=== PATIENT | female | born 1940 | race Caucasian/White ===

== ENCOUNTER 2025-02-17 12:44 | Inpatient (IN) | payer MEDICARE, SELFPAY ==
--- NOTE | 2025-02-04 10:58 | PM.GYNHP.1 ---
History of Present Illness History of Present Illness Narrative: Cristina Araujo is a 84 year old female Date of procedure:?? 02-17-2025 Preoperative diagnosis:? cystocele, vaginal vault prolapse, stage 3 urinary incontinence, mostly urge ,. some stress incontinence incomplete bladder emptying, with paris catheter Planned Procedure:?? total colpocleisis, excision of granulation tissue, cystoscopy, possible mid urethral sling Postop Meds Tylenol 1000 mg, ?3 times a day? Motrin 400 mg (over age 65 yr) ,? 3 times a day Oycodone 5 mg,? take 1 pill every 4-6 hr as needed, # 10? Colace,? 1 pill BID, for constipation CC: Recurrence severe prolapse, With incomplete bladder emptying and Paris catheter HPI: 84-year-old female who presents for evaluation of above complaint.?? She reports onset of symptoms over 2 years ago.?? She considers this a? Moderate? problem. She is here with her adult daughter, Denise Patient is referred from [facility] Dr. José Miguel Michel She has a complicated surgical history. Most recently she underwent a partial LeFort colpocleisis in [place] in 2022. This surgery failed within a few months. Since that time she is experiencing incomplete bladder emptying with post for his residuals ranging from 300-400 cc and recurring UTI. She is currently managed with a chronic Paris catheter and waiting for her prolapse to be treated. She desires repeat prolapse surgery. She previously has had a hysterectomy previously had some type of prolapse surgery 20 years ago. She has also had an abdominal wall hernia treated with mesh in the anterior abdominal wall. She has failed multiple pessaries. She currently has a large bulge the size of a tennis ball and associated symptoms of pressure and heaviness and incomplete bladder emptying. She had a cystoscopy done that demonstrated no concerning lesions. Chest bladder trabeculations consistent with clinical findings of incomplete bladder emptying She had a renal imaging study that demonstrated bilateral stones and mild hydronephrosis bilaterally. She is referred for surgical consultation for a possible total colpocleisis for a robotic laparoscopic sacral colpopexy. Prior to the surgery in 2022 the medical records indicate that she had both stress and urge urinary incontinence symptoms as well as urinary frequency about every 1-2 hours in using 5 pads per day. Presently she is unable to void well has a chronic Paris catheter. We discussed that she is at risk of developing stress incontinence following repair of the prolapse and that she might need this treated as well. prior hyst -yes Pelvic Floor Review of Systems: (HPI) Stress Urinary Incontinence symptoms (JAJA): Currently, no,, due to chronic Paris catheter, but did have these symptoms prior to the failed surgery in 2022 ? Urge Incontinence symptoms (Urge UI):?? Currently, no,, due to chronic Paris catheter, but did have these symptoms prior to the failed surgery in 2022 ? Pads: Presently 0, did use 5 pads per day prior to 2022 Overactive Bladder symptoms (OAB):? ? Frequency:?? Previously was 1-2 hours Nocturia:?? Previously was 5 Urgency:?? Previously was yes Prior incontinence treatment includes:? Medical:? Yes Surgical:? Unclear, possible prior surgery Kegels:?? Yes Physical therapy:?No? Pessary:?Has tried these for prolapse. Not for incontinence Diet / Fluids: Fluid restriction:? No Excessive fluids:?No Pain symptoms:? Painful bladder:???No Dysuria:??? No Dyspareunia:? No Dysmenorrhea:? No Urinary Risk Factors UTI?s, recurrent:? Yes Hematuria:? No Kidney Stones:?Recent imaging demonstrates small bilateral stones Tobacco use:? No Pelvic Organ Prolapse (POP) symptoms:?? Bulge:?Yes Pressure and /or? Heaviness:?Yes Splint for defecation or voiding:???No Voiding dysfunction: Abnormal stream:? No Strain to void: Yes Incomplete emptying: Yes Voiding difficulty:? No Retention:??? No Bowel Function: Constipation:?No Strain to defecate:?Now Fiber:?No Laxatives:?No Fecal Incontinence:? Liquid stool:? No Solid stool:?No?? Sexual function Sexually active:? No Incontinence with sex:? No ? 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 Pertinent positives listed above in HPI All others reviewed and negative. All reviewed on patient questionnaire.? . . PFSH Medical History Vaginal granulation tissue Incomplete bladder emptying Urethral hypermobility Vaginal vault prolapse Cystocele, midline Comment: Past medical history Asthma Hypertension Intracerebral hemorrhage Seizures stroke Diverticulosis large intestine For renal stones Scoliosis Osteoarthritis Past surgical history Hysterectomy 2 prior prolapse repairs rotator cuff repair, right paraesophageal hernia repair With mesh joint replacement Allergies Sulfa with hives Clindamycin with diarrhea Lisinopril with cough Metronidazole with nausea and vomiting Penicillin with hives Allergies metronidazole (From Flagyl) Allergy (Severe, Verified 01/01/25 10:34) Vomiting Penicillins Allergy (Severe, Verified 01/01/25 10:34) Rash clindamycin Allergy (Intermediate, Verified 01/01/25 10:34) Vomiting Sulfa (Sulfonamide Antibiotics) Allergy (Intermediate, Verified 01/01/25 10:34) Nausea lisinopril Adverse Reaction (Intermediate, Verified 01/01/25 10:34) cough Medications amitriptyline 25 mg tablet mg PO 01/01/25 [History Confirmed 01/01/25] estradiol 0.01% (0.1 mg/gram) vaginal cream vaginal 01/01/25 [History Confirmed 01/01/25] losartan 50 mg tablet 50 mg PO DAILY 01/01/25 [History Confirmed 01/01/25] metoprolol succinate 50 mg tablet,extended release 24 hr 50 mg PO DAILY 01/01/25 [History Confirmed 01/01/25] omeprazole 20 mg capsule,delayed release 20 mg PO DAILY 01/01/25 [History Confirmed 01/01/25] Medications Tylenol Amitriptyline Pepcid Losartan Metoprolol Estrogen vaginal cream Tobacco & Substance Use Smoking Status: Never smoker Exam Vitals 01/01/2510:39 Height 5 ft 2 in Weight 150 lb BMI 27.4 BP 150/89 H Blood Pressure Location Lt radial Position Sitting Pulse 72 Pulse Source Monitor Pulse Oximetry (%) 100 Oxygen Delivery Method room air General: healthy, alert, coherent, no acute distress, cooperative, nontoxic Pulmonary: normal breathing, no distress Abdomen: soft, no mass, non-distended, no hernia, non-tender Vulva: Normal labia majora, labia minora, introitus, and clitoris, non-tender Urethra meatus: normal, no discharge, chronic indwelling Paris catheter in place Perineum: Normal, non-tender Urethra: No mass, non-tender Bladder: no mass, non-tender Vagina: no discharge, + atrophy, non-tender there are areas of granulation tissue anteriorly and posteriorly, at the site of the prior failed LeFort partial colpocleisis the total amount of granulation tissue was about 6 sq cm on each side Stage III Prolapse -there is recurrence prolapse with cystocele and vault prolapse and upper rectocele Levators: Non-tender, Hysterectomy Bimanual: no mass, no adnexal mass, non-tender Anus: No lesion, non-tender, no hemorrhoid Empty Cough Stress test: Not performed PVR- + chronic indwelling Paris catheter, prior PVR was 325-400 cc Urethral hypermobility, yes. POP-Q Exam: Aa: 0 Ba: +4 Ap: -2 Bp: -2 C: +4 D: Not applicable, although the posterior wall goes to a depth of -4 TVL: 9 GH: 3.5 PB: 3.0 Introitus size: X2 fingerbreadths Cystocele stage: Stage III Rectocele stage: Stage I Uterine/Vault Prolapse Stage: stage III Assessment & Plan (1) Cystocele, midline: Status: Acute (2) Vaginal vault prolapse: Status: Acute (3) Urethral hypermobility: Status: Acute (4) Incomplete bladder emptying: Status: Acute (5) Vaginal granulation tissue: Assessment and Plan ? Patient counseled regarding above conditions.? Educational materials given to patient. 1. 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 Treatment options were discussed including: expectant management, pessary trial, and surgical intervention. We briefly discussed risks and benefits of surgery. All surgery for prolapse is not 100% successful and there is a chance of recurrence or failure. She declines a Pessary Trial for Prolapse Prior failed prolapse surgery with a partial LeFort colpocleisis she desires surgery my recommendation = total colpocleisis, excision of granulation tissue, cystoscopy, possible mid urethral sling We also discussed possible robotic laparoscopic sacral colpopexy. However this is a more complex surgery made even more difficult by her prior pelvic surgeries on her prior abdominal wall hernia repair with mesh in the abdominal wall. The total colpocleisis will be a chronic current safer surgery for her to undergo and the results should be the same see below for counseling 2. Urethral hypermobility She is at risk for postoperative stress incontinence from the prolapse repair. Studies show that in women with severe prolapse of the anterior vaginal wall, 25% will have significant stress incontinence, following prolapse repair surgery. So her risk of finding stress incontinence, as below, is 25%. Will plan to diagnose stress incontinence intra-operatively by filling the bladder with 200-300 cc of fluid, and then using a crede maneuver to see if there is leakage of fluid from the urethra. If there is leakage, then stress incontinence will be diagnosed, and she will be treated with a mid urethral sling. 3. Incomplete bladder emptying with postvoid residuals of 300-400 cc, with chronic Paris catheter in place Anticipate that after the prolapse surgery her bladder will have improved emptying, hopefully normal emptying, and ideally will no longer need chronic Paris catheter Follow-up: Preop Surgical Counselling Note Patient seen for surgical counselling.? She desires surgical repair. Please see? H & P for exam and discussion. Date of procedure:?? 02-17-2025 Preoperative diagnosis:? cystocele, vaginal vault prolapse, stage 3 urinary incontinence, mostly urge ,. some stress incontinence incomplete bladder emptying, with paris catheter Planned Procedure:?? total colpocleisis, excision of granulation tissue, cystoscopy, possible mid urethral sling Postop Meds Tylenol 1000 mg, ?3 times a day? Motrin 400 mg (over age 65 yr) ,? 3 times a day Oycodone 5 mg,? take 1 pill every 4-6 hr as needed, # 10? Colace,? 1 pill BID, for constipation Patient counseled extensively about the Risks, Benefits, and Alternatives to surgery.? She was offered the opportunity to ask any questions, and all questions were answered. ? Surgical Risks include: Bleeding, Hemorrhage, Transfusion, Infection (especially wound or bladder), Injury to adjacent organs (especially bladder, ureter, bowel, blood vessels, nerves), Postop or Chronic Pain, need for Reoperation, and Life-threatening event (especially M.I., CVA, PE, DVT). Procedure Risks include: Failure to Cure condition, Recurrence of condition months or years later, Urinary incontinence, Voiding dysfunction or Urinary Retention with prolonged catheter use, Poor wound healing, Erosions of any mesh or graft used, Dyspareunia, Vaginal scarring or narrowing, Need for additional surgery (immediate or delayed).? The expected cure and improvement and failure rates were discussed. Patient counseled to avoid the following for 6 weeks after surgery: (1) Impact sports (like running or jumping), walking and stairs OK (2) Lifting over 20# (3) Sexual intercourse No limits after 6 weeks. ? Good exercise tolerance, > 4 Mets. Her current medications were reviewed, and instructions given over which to use and which to discontinue before surgery.? Post-operative care instructions reviewed.? We discussed post-operative pain: Pain should be in the mild-moderate range, but can be moderate-severe for the first few days.?? Prescriptions will typically be given for (1) acetaminophen (Tylenol) and (2) non-steroidal anti-inflammatory drug (NSAID, like Motrin or Naprosyn), use both together, around the clock. Prescription will also be given for a (3) narcotic pain medication. Use the narcotic as needed, as a booster to the Tylenol and NSAID. You might need 0-4 narcotic pills a day typically. The narcotic will only be needed for a few days.?? Gradually use less of the narcotic, but continue the Tylenol and NSAID.? After a few days, the narcotic should no longer be needed, and only the Tylenol and NSAID will be needed.? Warm packs or cold packs can also be used for pain.??Do not drive for as long as you are using the narcotic pain medication? - this should only be a few days.?? Constipation is associated with use of narcotic pain medications, and can be improved with use of a stool softener, or fiber, or a mild laxative.? If you are sent home from the hospital with a Paris Catheter in place:? please call the office on the day after surgery We will usually remove the catheter 2-4 days after surgery: a. You will perform an at home Paris catheter removal -or- b. You will come in to the office for a voiding trial, (For some unusual surgeries, we might leave the catheter in for up to 2 weeks, and then remove it.) Instructions for at home Paris catheter removal..... For at-home Paris catheter removal, this can be done on postop day 2 or 3 or 4, depending on various factors. 1. At 6 or 7 a.m., have the patient cut the Paris catheter with scissors, while standing in a shower or bath tub. a. Cut the catheter right in the middle of the tubing, about 6 inches from the body. b. The sterile water that is inside the Paris balloon will leak all over the floor of the shower or bath tub. This is expected. c. The catheter will either fall out of the urethra, or just gently pull on it and it will come out. 2. Now, the bladder will gradually fill up over the next few hours. 3. Go ahead and empty the bladder when you feel an urge to void. Please note how strong the urine stream is. a. If the urine stream is normal or close to normal, then everything is good to go. b. If the urine stream is slow or you can not void, then return to the clinic in the afternoon. We will place another Paris catheter. We will repeat the voiding trial in 3-4 days. All of her questions were answered Aristeo García MD UroGynecology & Pelvic Reconstructive Surgery [facility] Medical History (Updated 01/01/25 @ 13:13 by Aristeo García MD) Vaginal granulation tissue Incomplete bladder emptying Urethral hypermobility Vaginal vault prolapse Cystocele, midline Meds Home Medications and Allergies Home Medications ?Medication ?Instructions ?Recorded ?Confirmed ?Type amitriptyline 25 mg tablet mg PO 01/01/25 01/01/25 History estradiol 0.01% (0.1 mg/gram) vaginal 01/01/25 01/01/25 History vaginal cream losartan 50 mg tablet 50 mg PO DAILY 01/01/25 01/01/25 History metoprolol succinate 50 mg 50 mg PO DAILY 01/01/25 01/01/25 History tablet,extended release 24 hr omeprazole 20 mg capsule,delayed 20 mg PO DAILY 01/01/25 01/01/25 History release oxycodone 5 mg tablet 5 mg PO Q8H PRN pain #10 tabs 02/04/25 02/04/25 Rx Allergies Allergy/AdvReac Type Severity Reaction Status Date / Time metronidazole (From Flagyl) Allergy Severe Vomiting Verified 01/01/25 10:34 Penicillins Allergy Severe Rash Verified 01/01/25 10:34 clindamycin Allergy Intermediate Vomiting Verified 01/01/25 10:34 Sulfa (Sulfonamide Allergy Intermediate Nausea Verified 01/01/25 10:34 Antibiotics) lisinopril AdvReac Intermediate cough Verified 01/01/25 10:34 Assessment & Plan Time-Based Coding :: [TOTAL MINUTES] spent with patient and on the chart (including review of chart, obtaining history, exam, reviewing outside data, placing orders, documenting exam and treatment plan, and counseling patient) on [DATE].
[2025-02-06 13:06] VITALS: BMI 27.4
[2025-02-17] VITALS (15 sets, daily range): BP systolic 120–163; BP diastolic 43–79; PULSE 73–81; RESP 14–26; TEMP 36.1–36.4; O2SAT 19–99; BMI 27.4
--- NOTE | 2025-02-17 | PATH_ITS ---
[facility] Accession Number: [id number] No. of containers..01 Tissue . 01 Material submitted: . vagina - VAGINAL TISSUE . 01 Diagnosis: VAGINAL TISSUE: Squamous mucosa with patchy parakeratosis; negative for dysplasia or malignancy. Polypoid fragments of inflamed granulation tissue; negative for atypia or malignancy. MRV 02/27/2025 1651 Local . 01 Comment: this case was also reviewed by Dr. Phani Emerson (Julie), who agrees with the interpretation. . 01 Electronically signed: . Marily Campbell MD, Pathologist NPI- [id number] . 01 Gross description: . Received in formalin labeled with two patient identifiers and vaginal tissue, and consists of a 11.0 x 6.5 x 0.5 cm aggregate of mcdaniel-whtie, smooth, glistening, focally cauterized soft tissues partially surfaced by a white, glistening, wrinkled, unremarkable mucosa. The cauterized margins are inked, and the specimen is serially sectioned to show a white, fibrotic, homogenous, unremarkable cut surface. Additionally received in the same container is a 3.0 x 2.0 x 0.4 cm aggregate of mcdaniel, purple, focally edematous, fibromembranous tissue which is sectioned to show an unremarkable cut surface. Tool Sharpener sections are submitted as follows: A1: Tool Sharpener sections of glistening, cauterized vaginal mucosa. A2: Tool Sharpener sections of mcdaniel-purple, edematous, fibromembranous tissue. ([id number]) /TRUDI 02/24/2025 2104 Local . 01 Pathologist provided ICD-10: N81.11, N81.9, N39.3 . 01 CPT . 113930 Specimen Comment: A courtesy copy of this report has been sent to [facility] Pathology Performed at: [address] [facility] [address] [facility], [place], [place] [id number] MD Dusty Pratt MD Phone: [phone]
--- NOTE | 2025-02-17 06:00 | EKG_ITS ---
[facility] [id number] [address] Test Date: 2025-02-17 Pat Name: Cristina Araujo Department: Room: 90B Gender: Female Admission Specialist: Pushpa QUICK : 1940 Requested By: Order Number: [id number] Reading MD: Kurtis Estevez MD Measurements Intervals [place] Rate: 74 P: 30 TX: 184 QRS: 1 QRSD: 94 T: 8 QT: 372 QTc: 412 Interpretive Statements Normal sinus rhythm Nonspecific ST abnormality Electronically Signed On 02-17-2025 16:18:25 PDT by Kurtis Estevez MD
[2025-02-17] MEDS: LACTATED RINGERS 1,000 ML 42 ML IV ×3 (13:34→22:00)
[2025-02-17] MEDS: ACETAMINOPHEN 325 MG TABLET 975 MG PO ×2 (13:34→22:45)
[2025-02-17] MEDS: GABAPENTIN 300 MG CAPSULE PO (13:35)
[2025-02-17] MEDS: PHENAZOPYRIDINE 100 MG TABLET 200 MG PO (13:48)
--- NOTE | 2025-02-17 14:43 | PM.PREOP ---
Pre-operative Note Interval Note History & Physical reviewed/Exam performed by Physician: Yes Changes to H&P: No
--- NOTE | 2025-02-17 15:30 | P.OP_ITS ---
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 Aristeo García MD Machine Packer:?? Bharati Real MD Pre-Op Diagnosis:?? 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 Stage III prolapse, primarily cystocele and vaginal vault, to + 4 cm 2. Extensive granulation tissue around the vagina, all of this was excised. It was all due to the prior failed LeFort colpocleisis 3. Entire vagina excised, except for distal 2 cm of Anterior vaginal mucosa, left to cover over the sling.?? Two purse string sutures 2-0 vicryl used to close the bladder to the rectum in usual fashion. Interrupted sutures 2-0 vicryl used to reapproximate the levator muscles and completely close the vagina. Gel- Foam placed for hemostasis. Only about 2 cm of vaginal depth noted at end of case (from introital and vulvar tissue). 4. Cystoscopy with normal bladder, urethra, ureters, no injury.? With 200 ml of fluid in the bladder, Crede demonstrated large leak of fluid, so JAJA diagnosed, sling indicated 5. Desara Retropubic TVT -type sling placed at mid-urethra, tension-free.??? Cystoscopy with normal bladder, urethra, ureters, no trocar injury. Date of Surgery:? 02-17-2025 Complications:? none Specimens:? Vaginal mucosa Anesthesia Technique: General endotracheal Estimated Blood Loss (mls):? 300 Blood Replacement (mls):? None Drains:? Gray Condition:? Stable Procedure in detail: After consent was confirmed, the patient was taken to the operating room and placed under general anesthesia without incident.? Sequential compression devices were in place and active.? She received perioperative antibiotics.? She was then prepped and draped in the usual sterile fashion after placement in the dorsal lithotomy position using the Carrillo stirrups.? A Gray catheter was placed.? NearTotal eversion of the vagina was seen. Allis clamps were placed on the right and left sides of the vaginal cuff. A marking pen was used to walter the location of the vaginal incisions, to make 4 quadrants, and the base of the quadrants was the introitus, except 2-3 cm at anterior vagina at the urethra to cover the sling. The vagina was hydrodissected with 40 cc of lidcaine / epi, diluted to 0.25% / 1:400,000. The vagina was incised in the midline from just above the urethro-vesical junction, to the apex, and then down to the posterior introitus. Then the vagina was incised from the apex to each sidewall to create 4 quadrants. The mucosa was dissected off of the underlying pubocervical fascia and rectovaginal fascia with the scissors. All 4 quadrants of vaginal mucosa were excised. There was excision of all of the vaginal mucosa except leaving enough to cover the sling (i.e. Complete vaginectomy - the vaginal circumference is about 10 cm, and is about 7-10 cm deep). 2 purse string sutures of 3-0 vicryl were used to close the bladder / pubocervical fascia to the rectum / rectovaginal fascia. Gel-Foam was placed for hemostasis. Next, several interrupted sutures of 2-0 vicryl were used to close the levator muscles together in the midline.? This closed the pelvic floor (like a male instead of a female), so there was no opening in the pelvic muscles to prolapse through.? Finally, the skin of the vulvar / vaginal opening, i.e. Introitus, was closed side to side, to create a skin layer on top of the muscles.? This essentially forms a small 1-2 cm deep vaginal opening.? The Gray catheter was removed. Cystoscopy was done with a 70 degree lens, with normal bladder, urethra, ureters, no injury.? The fluid was drained and then 200 cc fluid was instilled. With 200 ml of fluid in the bladder, Crede demonstrated large leak of fluid, so JAJA diagnosed, sling indicated With the Gray catheter in place, the anterior vaginal mucosa beneath and lateral to the urethra was injected with 10-20 cc of? 0.5% lidocaine / epinephrine 1:200,000.? A 2-3 cm midline incision was made at the level of the midurethra with a scapel. Metzenbaum scissors were used to dissect the vagina from the urethra and then create tunnels beneath the vaginal mucosa up toward the pubic bone on each side.? A marking pen was used to walter the skin just above the pubic bone and 2 cm from the midline bilaterally, and two small 8-10 mm incisions were made on the suprapubic skin.? The trocar was passed from the right vaginal tunnel, behind the pubic bone, to the right suprapubic incision, and this was repeated on the left side.? The Gray catheter was removed, and cystoscopy was performed with a 70 degree lens. There was no trocar injury, and the bladder, ureters, and urethra were normal.? The Gray catheter was reinserted.? The sling was pulled into position in a tension-free manner, and a Janelle clamp was easily passed between the sling and the urethra.? The plastic sheaths were removed to anchor the sling, and tension was checked again. The en ds of the sling were trimmed just below the skin, and the skin incisions were cleaned and closed with dermabond. The vaginal incision was closed with 2-0 vicryl in a running fashion. Sponge, needle and instrument count was correct.? The patient tolerated the procedure well and was taken to the recovery room in stable condition. An additional set of hands was needed to perform the surgery, so a certified surgical first assistant was needed for the case. The horticultural nursery assistant provided retraction and exposure throughout the case. Aristeo García MD UroGynecology & Pelvic Reconstructive Surgery [place], [place] Applied: implant(s) (mesh sling )
--- NOTE | 2025-02-17 15:52 | SUR.OPER ---
High Lithotomy on padded OR bed, head on pillow, arms secured on padded arm boards at <90 degrees abduction. Legs secured in padded yellow fins stirrups. Surgeon in room to adjust stirrups and assist with positioning, final position approved by surgeon. All pressure points padded and protected.
--- NOTE | 2025-02-17 15:58 | SUR.OPER ---
Prior to surgical prep, emptied 350ml clear orange colored urine from catheter. vamp creaser discontinued catheter prior to prep. Made surgeon aware of white, yellow vaginal discharge prior to prep.
[2025-02-17] MEDS: LIDOCAINE 1% W/EPI 10ML 20 ML INJ (16:06)
[2025-02-17] MEDS: BUPivacaine 0.25% W/ EPI (PF) 30 ML VIAL INJ (16:23)
[2025-02-17 19:51] LABS: Add Manual Diff / Slide Review NO; Hematocrit 37.4 % (36-46); Hemoglobin 12.3 g/dL (12.0-16.0); Lymphocytes Absolute Auto 600 /uL (1100-4500); Mean Corpuscular HGB Conc 32.9 % (30-36); Mean Corpuscular Hemoglobin 27.5 PG (26-34); Mean Corpuscular Volume 83.6 fL (80-100); Platelet Count 215 X10^3/uL (150-400)
[2025-02-17 20:13] LABS: Alanine Aminotransferase 19 IU/L (<35); Albumin 3.9 g/dL (3.5-5.0); Albumin Globulin Ratio 1.1 (1.0-2.8); Alkaline Phosphatase 123 U/L (38-126); Blood Urea Nitrogen 12 mg/dL (7-17); Calcium 9.4 mg/dL (8.4-10.2); Carbon Dioxide 24 mmol/L (22-32); Chloride 102 mmol/L (98-107); Estimated Glomerular Filt Rate > 60 mL/min (>60); Globulin 3.5 g/dL (1.7-4.1); Glucose 192 mg/dL (70-99); HEMOLYSIS < 15 (0-50); Potassium 3.9 mmol/L (3.4-5.1); Sodium 136 mmol/L (137-145); Total Protein 7.4 g/dL (6.3-8.2)
[2025-02-17] MEDS: DOCUSATE 100 MG CAPSULE PO (22:44)
[2025-02-17] MEDS: FAMOTIDINE 20 MG TABLET PO (22:45)
[2025-02-17] MEDS: KETOROLAC 30 MG/ML VIAL 15 MG IV (22:45)
[2025-02-17] MEDS: AMITRIPTYLINE 25 MG TABLET 50 MG PO (22:46)
[2025-02-18 01:30] VITALS: BP 116/53; PULSE 84; RESP 18; TEMP 35.6; O2SAT 96
[2025-02-18] MEDS: KETOROLAC 30 MG/ML VIAL 15 MG IV (06:02)
[2025-02-18] MEDS: ACETAMINOPHEN 325 MG TABLET 975 MG PO (06:03)
[2025-02-18] MEDS: SODIUM CHLORIDE 0.9% FLUSH 10 ML IV (08:19)
[2025-02-18] MEDS: DOCUSATE 100 MG CAPSULE PO (08:19)
--- NOTE | 2025-02-18 11:44 | CM.DANOTE ---
DCP Assessment note- Brief pt is a 84yo F POD1 complete vaginectomy with Dr. Schultz. TUBE SIZER OPERATOR reviewed EMR. per chart, pt lives indep with spouse in [place]. lives nearby supportive children. per chart, able to dc home today. TUBE SIZER OPERATOR met with pt and family in room briefly. reports eager to dc home. report has necessary DME for home. denies any DCP needs, has a ride home. P: dc home today with OP f/u already scheduled. no further CM needs at this time. will continue to follow as needed for DCP Coordination MARIO Anderson Discharge Planning/Care Management CM Discharge Assessment Start: 02/17/25 13:29 Freq: Status: Active Protocol: Document 02/18/25 11:43 SL (Rec: 02/18/25 11:44 SL [id number]) Discharge Planning Assessment Assigned Discharge MARIO Ponce Statistical Typist Provider Davie Mcallister Insurance [employer] DPOA/Assigned david Walker Designee Name Contact Information [phone] Advance Directives? No History Provided By Patient Prior Living Apartment/Condo Arrangements Household Members spouse Willing to Return to Yes Facility? Independent with ADL Yes 's Is patient alert and Yes oriented? DME Already Rented / FWW / Walker Owned Barriers to No Discharge Discharge Plan Home Referrals Initiated None needed Review Status In Process Please Provide Date 02/18/25 Initial DC Assessment Was Performed Next Review Type Continued Stay Review Pre-Anesthesia Assessment. Start: 02/06/25 13:06 Freq: Status: Complete Protocol: Document 02/06/25 13:06 LB (Rec: 02/06/25 13:13 LB [id number]) Pre-Anesthesia Assessment PAC Comment 02/06/25 Chart review. Patient Information Chart Review Reviewed Via Diagnostic Results BMP/CMP,CBC,Urinalysis Comment 12/22/24 outside results. 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 completely paralyzed or completely immobile Prosthesis or Cane Orthotic Device Is patient on oxygen No ? Hx Sleep Apnea No Currently Taking a Yes: Metoprolol 50mg daily. Beta Nita Anti-Coagulant No Therapy Has a Energy Control Officer No Cardiac Testing Yes: 2019 holter monitor, echo. Hx Pacemaker/ICD No Gastrointestinal Reflux Symptoms Chronic UTI Yes Bladder Pattern Retention Urinary Catheter Yes: Last changed 01/22/25. Present Diabetes No Patient No Lactating No Presence of external Yes: Bilat hips, bilat IOL, [place]. or internal medical devices? Patient Discharge Return Home Plan Description Emergency Contact Jann Araujo - son Name Emergency Contact [phone] Phone Number Advance Directives No on File
--- NOTE | 2025-02-18 11:45 | PC.NURSE ---
Discharge Note Patient A&O, VSS, RA, no complaints of pain/discomfort. Discharge packet reviewed with patient, all questions/concerns addressed. PIV discontinued. Patient able to dress self and pack all belongings. Patient taken down via wheelchair to POV accompanied by family.
== END 2025-02-18 11:00 | disposition home or self-care (01) | DRG 748 ==
PROVIDERS: Admitting Provider Obstetrics & Gynecology Gynecology; PCP Optometrist; Referring Provider Optometrist; Visit Provider Obstetrics & Gynecology Gynecology
PROC: 0ULG7ZZ Occlusion of Vagina, Via Natural or Artificial Opening (ICD-10-PCS; CPT 57120; principal; 2025-02-17 14:15)
DX: N81.11 Cystocele, midline (principal); N39.46 Mixed incontinence; N36.41 Hypermobility of urethra; R33.9 Retention of urine, unspecified; Z98.890 Other specified postprocedural states; Z90.710 Acquired absence of both cervix and uterus
CPT/HCPCS: 36415; 57110; 57288; 80053; 85025; 93005; 93010; C1771; A9270; J0330; J0689; J1100; J1885; J2405; J2704; J3010; J3490; J7120